=== PATIENT | female | born 1995 | race Caucasian/White ===

== ENCOUNTER 2022-08-07 16:17 | Inpatient (IN) ==
[2022-08-07] MEDS ORDERED: Buffered Lidocaine 1% SYRIN 1 ml INTRADERM ONE (16:46)
[2022-08-07] MEDS ORDERED: Lactated Ringers 1000 ml BAG 1,000 ML IV SCH (17:00)
[2022-08-07 17:36] LABS: ABS Basophils 0.1 10^3/ul (0-0.2); ABS Eosinophils 0.3 10^3/ul (0-0.6); ABS Lymphocytes 1.6 10^3/ul (1.0-4.8); ABS Monocytes 0.9 10^3/ul (0-0.8); ABS Neutrophils 6.8 10^3/ul (1.5-7.7); Eosinophil % 3.3 %; Hematocrit 38 % (35-47); Hemoglobin 12.4 g/dL (12.0-16.0); Lymphocyte % 16.7 %; Mean Corpuscular HGB Conc 33 g/dL (31-36); Mean Corpuscular Hemoglobin 27 pg (27-31); Mean Corpuscular Volume 83 fL (80-97); Mean Platelet Volume 8.7 fL (7.4-10.4); Platelet Count 274 10^3/uL (150-450); Red Blood Count 4.55 10^6 /uL (3.70-4.87); Red Cell Distribution Width 14 % (10-15); White Blood Count 9.7 10^3/uL (3.5-10.8)
[2022-08-07 17:38] LABS: Urine Appearance Clear; Urine Bilirubin Negative (Negative); Urine Blood Negative (Negative); Urine Color Yellow; Urine Glucose Negative (Negative); Urine Ketones Negative (Negative); Urine Nitrite Negative (Negative); Urine Protein Trace (Negative); Urine Urobilinogen 1.0 (Negative) (Negative)
[2022-08-07] MEDS: Lactated Ringers 1000 ml BAG 1,000 ML IV ONE (17:45)
[2022-08-07 17:46] LABS: Urine Bacteria 1+ (Absent); Urine Red Blood Cell 2+(6-10/hpf) (Absent); Urine Squamous Epithelial Cell Present (Absent); Urine White Blood Cell Trace(0-5/hpf) (Absent)
[2022-08-07 17:47] LABS: Urine Specific Gravity 1.029 (1.002-1.030)
[2022-08-07 18:01] LABS: Urine Benzodiazepine Screen None Detected (None Detect); Urine Cannabinoids Screen Presumptive Positive (None Detect); Urine Opiates Screen Presumptive Positive (None Detect)
[2022-08-07] MEDS ORDERED: Dinoprostone 10 MG VAG.SUPP VAGINAL ONE (18:06)
[2022-08-07 18:21] LABS: Albumin 2.9 g/dL (3.2-5.2); Albumin/Globulin Ratio 1.6 (1-3); Calcium 8.5 mg/dL (8.6-10.3); Globulin 1.8 g/dL (2-4); Potassium 4.3 mmol/L (3.5-5.0); Total Bilirubin 0.4 mg/dL (0.2-1.0); Total Protein 4.7 g/dL (6.4-8.9); Uric Acid 5.6 mg/dL (2.3-6.6); eGFR CKD-EPI 94.3 (>60)
[2022-08-08 09:44] LABS: Urine Benzodiazepine Screen None Detected (None Detect); Urine Opiates Screen None Detected (None Detect)
[2022-08-08] MEDS ORDERED: Oxytocin in LR 20,000 MILLI.UNIT/1,000 ML BAG IV SCH ×2 (12:00→17:45)
[2022-08-08] MEDS ORDERED: Promethazine INJ(RESTRICTED) 25 MG/ML 1 ml VIAL IV PRN (12:30)
[2022-08-08] MEDS ORDERED: Morphine 10 MG/ML VIAL (1 ml) IV ONE (12:31)
[2022-08-08] MEDS ORDERED: Morphine 10 MG/ML VIAL (1 ml) IM ONE (12:33)
[2022-08-08] MEDS: Lactated Ringers 1000 ml BAG 1,000 ML IV ONE (16:14)
[2022-08-08] MEDS ORDERED: EPINEPHrine SULFITE FREE 1 MG/ML ONE (16:16)
[2022-08-08] MEDS ORDERED: OBEPIDURAL (200 ML) 0 ML EPIDURAL ONE (16:17)
[2022-08-08] MEDS ORDERED: Lidocaine 1% VIAL 10 MG/ML VIAL 30 ML ONE (16:17)
[2022-08-08] MEDS ORDERED: Witch Hazel PAD JAR TOPICAL PRN (17:36)
[2022-08-08] MEDS ORDERED: Glycerin ADULT 2.4 gm SUPP PR PRN (17:36)
[2022-08-08] MEDS ORDERED: Dibucaine 1% OINT 28.35 GM TUBE PR PRN (17:36)
[2022-08-08] MEDS ORDERED: Lactated Ringers 1000 ml BAG 1,000 ML IV SCH (18:00)
[2022-08-08] MEDS ORDERED: RHO D Immune Globulin (HUMAN) 300 MCG = 1,500 I.U. INJ IM ONE (21:39)
[2022-08-09 07:44] LABS: ABS Basophils 0.1 10^3/ul (0-0.2); ABS Eosinophils 0.3 10^3/ul (0-0.6); ABS Lymphocytes 1.9 10^3/ul (1.0-4.8); ABS Monocytes 0.8 10^3/ul (0-0.8); ABS Neutrophils 8.2 10^3/ul (1.5-7.7); Eosinophil % 2.8 %; Hematocrit 29 % (35-47); Hemoglobin 9.9 g/dL (12.0-16.0); Lymphocyte % 17.3 %; Mean Corpuscular HGB Conc 34 g/dL (31-36); Mean Corpuscular Hemoglobin 28 pg (27-31); Mean Corpuscular Volume 82 fL (80-97); Mean Platelet Volume 8.4 fL (7.4-10.4); Platelet Count 220 10^3/uL (150-450); Red Blood Count 3.58 10^6 /uL (3.70-4.87); Red Cell Distribution Width 14 % (10-15); White Blood Count 11.3 10^3/uL (3.5-10.8)
[2022-08-10 08:05] VITALS: BP 143/66
== END 2022-08-10 11:50 | disposition home or self-care (01) | DRG 560 ==
LOC: MCHOBOUT 16:17 → MCHOB 16:40
PROVIDERS: ADMIT Obstetrics & Gynecology; ATTEND Obstetrics & Gynecology